=== PATIENT | female | born 1950 ===

== ENCOUNTER 2017-02-19 14:37 | Inpatient (IN) | payer MEDICARE, MEDICAID ==
[2017-02-19] MEDS ORDERED: DOPamine 200 MG/250 ML IVPREM* 200 MG/250 ML ML IV SCH (19:45)
[2017-02-19] MEDS ORDERED: Norepinephrine 16MCG/ML IVPRE* 4,000 MCG/250 ML BAG IV ONE (20:01)
[2017-02-19] MEDS ORDERED: DOPamine 200 MG/250 ML IVPREM* 200 MG/250 ML ML IV ONE (20:01)
[2017-02-19] MEDS: Norepinephrine 16MCG/ML IVPRE* 4,000 MCG/250 ML BAG IV SCH ×2 (20:17→23:19)
[2017-02-19 20:24] LABS: Hematocrit 58 % (35-47); Hemoglobin 17.3 g/dl (12.0-16.0); Mean Corpuscular HGB Conc 30 g/dl (31-36); Mean Corpuscular Hemoglobin 30 pg (27-31); Mean Corpuscular Volume 101 fL (80-97); Mean Platelet Volume 11 um3 (7.4-10.4); Red Blood Count 5.73 10^6/ul (4.0-5.4); Red Cell Distribution Width 17 % (10.5-15); White Blood Count 9.9 10^3/ul (3.5-10.8)
[2017-02-19 20:26] LABS: Comments Flag Yes
[2017-02-19 20:31] LABS: BUN/Creatinine Ratio 37.3 (8-20); EGFR African American 44.4 (>60); EGFR Non-African American 34.5 (>60)
[2017-02-19 20:33] LABS: Potassium 2.6 mmol/L (3.5-5.0)
[2017-02-19] MEDS ORDERED: Phenylephrine INJ* 10 MG/ML 1 ML VIAL (10 MG) ONE (20:48)
[2017-02-19] MEDS: Phenylephrine INJ* 50 MG in NS 0.9% 250 ML* 245 ML IV SCH (20:53)
[2017-02-19] MEDS: KCL 20 MEQ/100 ML IVPREMIX* 20 MEQ/100 ML BAG IV SCH ×2 (21:14→23:31)
[2017-02-20] MEDS: Phenylephrine INJ* 50 MG in NS 0.9% 250 ML* 245 ML IV SCH ×3 (00:50→08:38)
[2017-02-20] MEDS: Norepinephrine 16MCG/ML IVPRE* 4,000 MCG/250 ML BAG IV SCH ×4 (00:52→08:38)
[2017-02-20] MEDS: KCL 20 MEQ/100 ML IVPREMIX* 20 MEQ/100 ML BAG IV SCH (02:00)
[2017-02-20] MEDS ORDERED: EPINEPHrine SYR 0.1 MG/ML* (1:10,000) SYRINGE ONE (03:23)
[2017-02-20] MEDS ORDERED: LR IV ONE (03:30)
[2017-02-20] MEDS: Chlorhexidine MOUTHWASH 0.12%* 15 ML UDC TOPICAL SCH ×6 (03:42→20:59)
--- NOTE | 2017-02-20 04:37 | HP ---
HISTORY AND PHYSICAL: DATE OF ADMISSION: 02/19/17 REASON FOR ADMISSION: Cardiac arrest. 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 There is no prior history of cardiac disease. PAST MEDICAL HISTORY: Includes cholelithiasis, severe kyphoscoliosis (status post Funk tamara placement), breast CA - status post right mastectomy in 2014 , chronic gastritis with gastroesophageal reflux, and Rett syndrome. No other history available at this time. OUTPATIENT MEDICATIONS: 1. Omeprazole 40 mg daily. 2. MiraLAX 34 g daily. 3. Colace 100 mg b.i.d. 4. Claritin 10 mg daily. DRUG ALLERGIES: LEVOFLOXACIN, reaction unknown. REVIEW OF SYSTEMS: Unobtainable. SOCIAL HISTORY: Patient has been a resident of [facility] for the past 20 years. She is nonverbal, and requires full care (including feeding) PHYSICAL EXAMINATION GENERAL: The patient is unresponsive to verbal commands or deep pain. VITAL SIGNS: Temp is 90.3 degrees, blood pressure 71/57 (on vasopressors), heart rate 108, O2 sat 92% with an FiO2 of 60% on mechanical ventilation. Respiratory rate = 16 bpm, and there are no spontaneous breaths. HEENT: Pupils are dilated and nonreactive. Corneal reflexes are absent. NECK: Without masses or jugular venous distention. LUNGS: Occasional rhonchi. CARDIAC: Regular rhythm. No murmurs appreciated. ABDOMEN: Soft. EXTREMITIES: Cool and mottled. NEUROLOGIC: Cranial nerves as mentioned, the patient had no spontaneous movements on admission. DIAGNOSTIC STUDIES/LAB DATA: Only labs available are a serum sodium of 168 mEq /L and a serum lactate of 9 mmol/L. Portable chest x-ray pending. EKG shows small voltage throughout and no acute ST or T-wave changes. IMPRESSION: Anoxic brain injury following cardiac arrest with post-arrest circulatory shock. Patient is also likely to be dehydrated (because of the hypernatremia), although she has received about 3 liters of fluid today (which should be enough to correct dehydration, given the patients weight of 30 kg). There is currently has no evidence of brain activity. MANAGEMENT PLAN: 1) Titrate vasopressor doses to maintain a mean blood pressure of 65 mmHg if possible and maintain arterial O2 sats greater than or equal to 90 %. 2) Continue hydration with IV fluids. 3) Will do a brain determination if there continues to be no spontaneous breathing efforts. CRITICAL CARE TIME: 60 minutes. [id number] #: [id number] MTDD
--- NOTE | 2017-02-20 05:54 | PRO ---
PROCEDURE NOTE: DATE OF PROCEDURE: 02/19/17 PROCEDURE: Insertion of a central venous catheter. DESCRIPTION OF PROCEDURE: The patient is a 67-year-old developmentally disabled female, who was transferred here from [facility] following a 25- minute cardiac arrest. The patient did not awaken and arrived here on two pressors, dopamine and Levophed. Only access was intraosseous and to provide access for pressors, fluids, and other medications, a central venous line was inserted. The right femoral vein was identified under ultrasound guidance and a 7.5-Icelandic triple-lumen catheter was inserted under ultrasound guidance. There were no apparent complications from this procedure. [id number]/[facility] #: [id number] [facility]
[2017-02-20 06:38] LABS: BUN/Creatinine Ratio 38.9 (8-20); Calcium 8.9 mg/dL (8.6-10.3); EGFR African American 54.3 (>60); EGFR Non-African American 42.2 (>60); Potassium 4.5 mmol/L (3.5-5.0)
--- NOTE | 2017-02-20 08:05 | RAD ---
INDICATION: Acute respiratory failure COMPARISON: None. TECHNIQUE: Single AP portable view of the chest was obtained. FINDINGS: Image quality is compromised due to the relative inferiority of a portable chest x-ray as well as inadequate positioning of the patient. Postoperative findings include Funk spinal tamara fixation. The tip of the endotracheal tube is below the level of the clavicular heads but otherwise obscured in relationship to the jo ann. The gastric tube tip terminates at the midline lower mediastinum but the tip is not seen below the level of the diaphragm. There is cardiomegaly and decreased lung volumes. The lung bases are scattered bilaterally. IMPRESSION: 1. Extremely limited chest x-ray due to positioning. 2. The gastric tube tip is seen at the level of the midline mediastinum. Please correlate to auscultation and/or tube drainage. 3. Likely cardiogenic pulmonary edema with bilateral pleural effusions.
[2017-02-20] MEDS ORDERED: Dextrose 50% Syringe 50 ML* 25 GM/50 ML SYRINGE ONE (08:17)
[2017-02-20] MEDS ORDERED: Phenylephrine INJ* 10 MG/ML 1 ML VIAL (10 MG) ONE (08:18)
[2017-02-20] MEDS ORDERED: Famotidine IV* 10 MG/ML 2 ML (20 mg) ONE (08:19)
[2017-02-20 11:18] LABS: FIO2 60; Resp Rate 12; Ventilator Volume 300
[2017-02-20 11:22] LABS: PCO2 Arterial 71 mmHg (35-45)
[2017-02-20] MEDS ORDERED: Iodixanol* (CONTRAST) 320 MG/ML 100 ML SDV IV ONE (12:01)
[2017-02-20] MEDS ORDERED: D5W IV SCH ×2 (12:54→14:03)
[2017-02-20] MEDS ORDERED: PHENYLEPHRINE IV SCH ×2 (12:54→14:03)
[2017-02-20] MEDS: D5W IVPB SCH ×3 (13:37→20:33)
[2017-02-20] MEDS: NOREPINEPHRINE IVPB SCH ×3 (13:37→20:33)
--- NOTE | 2017-02-20 13:50 | RAD ---
HISTORY: Brain termination COMPARISONS: None TECHNIQUE: Multiple contiguous axial CT scans were obtained of the head After the administration of nonionic intravenous contrast timed to the systemic arterial phase of contrast enhancement. Coronal and sagittal multiplanar reformations are submitted for review. Multiple 3-D maximum intensity projection reconstructions are also submitted for review. FINDINGS: Evaluation is limited by technique and patient positioning, and phase of contrast enhancement. RIGHT VERTEBRAL ARTERY: The distal right vertebral artery is unremarkable, without stenosis. LEFT VERTEBRAL ARTERY: The distal left vertebral artery is unremarkable, without stenosis. DOMINANCE: The vertebral arteries are codominant. DISTAL RIGHT CERVICAL INTERNAL CAROTID ARTERY: The distal right cervical internal carotid artery is unremarkable. DISTAL LEFT CERVICAL INTERNAL CAROTID ARTERY: The distal left cervical internal carotid artery is unremarkable. INTRACRANIAL CIRCULATION: There is no aneurysm, vascular malformation, occlusion, or stenosis of the visualized intracranial circulation. Specifically, flow is noted within the cortical branches of the middle cerebral arteries bilaterally The anterior communicating artery complex is clear. Bilateral posterior communicating arteries are identified. VENOUS CIRCULATION: The venous system is unremarkable. Specifically, flow is noted within the internal cerebral veins bilaterally PERFUSION: There is no obvious parenchymal perfusion deficit. HEMORRHAGE/INFARCT: There is no hemorrhage or acute infarct. MASSES/SHIFT: There is no mass or shift. EXTRA-AXIAL SPACES: There are no extra-axial fluid collections. SULCI AND VENTRICLES: There is diffuse sulcal effacement. CEREBRUM: There is a positive reversal sign, the density of the cerebellum is greater than the cerebral hemispheres. BRAINSTEM: There are no focal parenchymal abnormalities. CEREBELLUM: There is a positive reversal sign, the density of the cerebellum is greater than the cerebral hemispheres. PARANASAL SINUSES: The paranasal sinuses are clear. ORBITS: The orbits are unremarkable. BONES AND SOFT TISSUE: No bone or soft tissue abnormalities are noted. OTHER: There is no abnormal enhancement. IMPRESSION: 1. CONTRAST ENHANCEMENT IS NOTED WITHIN THE CORTICAL BRANCHES OF THE MIDDLE CEREBRAL ARTERIES BILATERALLY AND WITHIN THE INTERNAL CEREBRAL VEINS. 2. FINDINGS SUGGESTIVE OF DIFFUSE CEREBRAL EDEMA. 3. PRELIMINARY FINDINGS WERE DISCUSSED WITH DR. GORDON ON THE AFTERNOON OF FEBRUARY 20, 2017
--- NOTE | 2017-02-20 13:55 | PN ---
Critical Care Services: Patient presently on max dose vasopressors (norepinephrine and neosynephrine) and systolic BP only 70 mm Hg. Patient continues to be comatose. We did not start targeted temperature management post-arrest because the patient was already hypothermic (body temp 31 degrees Celsius) and has required warming to increase body temp. Vital Signs: Temp Pulse Resp BP SpO2 FiO2 94.5 F 100 12 91/51 90 60 NOTE: PATIENT HAS NO SPONTANEOUS RESPIRATIONS DESPITE PaCO2 OF 71 mmHg Physical Exam: Gen:Patient is unresponsive and is receiving no sedative drugs HEENT: Pupils fixed and dilated. Corneals absent bilaterally. Oculovestibular reflexes absent bilaterally. Lungs: rhonchi in both lungs. No wheezes or crackles Abdomen: Not distended. Extremities: Cool and mottled. Femoral pulses 2+ despite hypotension. Neuro: No spontaneous movements. No response to deep pain. Fluid Balance (Past 24 Hours): 02/20/17 06:59 Intake Total 5024 Output Total 311 Balance +4713 Weight 76 lb Intake: IV Fluids 2309 LR 2309 IVPB 324 K+ 324 Medicated IV 2391 CC - Dopamine 306 CC - Norepinephrine/ 1517 Levophed CC - Phenylephrine/ 568 Neosynephrine Output: Rush 311 Labs: 02/19/17 02/20/17 02/20/17 20:07 06:15 06:15 Sodium 166 Potassium 4.5 D Chloride 137 H Carbon Dioxide 22 Anion Gap 7 BUN 49 Creatinine 1.26 Glucose 68 POC Glucose (mg/dL) Lactic Acid 9.2 H* 6.8 H* Calcium 8.9 02/20/17 02/20/17 02/20/17 07:47 09:49 11:05 ABG pH 7.02 ABG pCO2 71 ABG pO2 62 L ABG HCO3 13.7 L ABG O2 Saturation 94.6 L ABG Base Excess -14.1 L Respiration Rate 12 Ventilator Type 300 Vent Mode cmv FiO2 60 POC Glucose (mg/dL) 56 L 125 H Studies: CTA OF HEAD - NONCONFIRMATORY FOR BRAIN Nutrition: NPO (because of high pressor requirement) Impression: Patient has no evidence of brainstem activity, but we are unable to diagnose brain because of the body temperature and blood pressure (both too low), and because the head CTA is not confirmatory of brain . However, the prognosis here is dismal because of the refractory hypotension and the persistently elevated lactate level. The 4 liters positive fluid balance should be more than enough to correct dehydration in a patient this size (30 kg) Plan: 1. Neuro consult (Dr. Mooney) 2. Maintain vasopressors and IV fluids 3. Attempt to get a DNR order (patient is a natarajan of the [facility]). Critical Care Time: 45 minutes (including time spent doing a brain determination)
[2017-02-20] MEDS: D5W IV SCH (18:26)
[2017-02-20] MEDS: PHENYLEPHRINE IV SCH (18:26)
--- NOTE | 2017-02-20 21:17 | CONS ---
NEUROLOGY CONSULTATION: DATE OF CONSULT: 02/20/17 LOCATION: She is in ICU, bed 1. REFERRING PHYSICIAN: Dr. Fadi Kaplan. CHIEF COMPLAINT: Recovery from cardiac arrest, assess level of neurological functioning. HISTORY OF PRESENT ILLNESS: Renata Burnett is a 67-year-old severely disabled woman, who is in a snf in [facility]. One of the healthcare workers , who has known her for several years is present at the bedside. She presented to [facility] yesterday in cardiac arrest. According to admission records, required about 25 minutes of resuscitation for return of circulation. She required vasopressor support and was transferred to our intensive care unit. Upon arrival here, she had a temperature of 90.3 degrees, blood pressure 71/57 on 2 vasopressors, heart rate of 108, and oxygen saturation of 92%, intubated on a 60% FiO2. Her pupils were dilated and unreactive and there were no spontaneous movements. She had a serum sodium of 168. She has not improved clinically, but has been a struggle to maintain her blood pressure on 2 pressors as well as to try to get her temperature up in spite of warming attempts. Her most recent temperature by Rush probe was 94.5 degrees Fahrenheit, her blood pressure typically is running about 80 systolic/40-50 diastolic. CBC from last night notable for a hemoglobin of 17.3 with hematocrit of 58% and platelet count of 99,000. Chemistries this morning are notable for sodium at 166 down minimally from admission at 168, chloride markedly elevated at 137, BUN 49, and creatinine 1.26. Glucose earlier this morning 68 and calcium 8.9. A blood gas from 11 this morning notable for pH 7.02 , PCO2 71, PO2 62. I spoke with Dr. Kaplan, who did an apnea test for several minutes and there were no spontaneous breaths. A pre- and post-blood gas was not obtained, just the pre- blood gas listed above. He did calorics and there were no eye movements and her pupils have remained unreactive since presentation. PAST MEDICAL HISTORY: Notable for diagnosis of Rett syndrome and gastroesophageal reflux. According to her aide, who has known her for years, she is nonverbal, is not able to eat independently, but sometimes can reach her face with the back of her hand, needs to be fed, but can swallow. There is no history of epilepsy. CURRENT MEDICATIONS: Consist of: 1. Phenylephrine. 2. Norepinephrine. 3. Famotidine. PHYSICAL EXAM: At time of examination, temperature is 34.7 Celsius, blood pressure is 75/54, heart rate about 100 and sinus. There are no spontaneous respirations, but I did not disconnect her from the ventilator. There are no spontaneous movements. Pupils are fixed and dilated at about 7 mm. There are no eye movements spontaneously or to vestibular ocular testing. There are no corneal reflexes or response to nasal tickle. There are no facial movements spontaneously or to supraorbital or nail-bed pressure. There are no movements of the limbs. The only movement I am able to elicit with the nail-bed pressure and the right forefinger is slight extension of the right thumb. There is no response to nail-bed pressure in any other of her limbs and there are no reflexes elicited. IMPRESSION AND PLAN: Impression is that of probable severe anoxic brain injury. With her hypothermia and hypotension, we cannot make a clinical diagnosis of brain . Additional studies include a CT angiogram of the brain done at 11:48 this morning. I reviewed and there are multiple perfused vessels and also diffuse decreased signal throughout the brain consistent with edema. Our ancillary studies does not show evidence of complete lack of brain perfusion and so we were able not able to make a clinical diagnosis of brain at this point in time. Clearly, her prognosis is dismal and she suffered devastating brain injury in addition to her premorbid developmental disabilities. I will discuss my impression with Dr. Kaplan further. [id number]/[facility] #: [id number] [facility]
[2017-02-21] MEDS: NOREPINEPHRINE IVPB SCH ×5 (00:08→14:01)
[2017-02-21] MEDS: D5W IVPB SCH ×5 (00:08→14:01)
[2017-02-21] MEDS: Chlorhexidine MOUTHWASH 0.12%* 15 ML UDC TOPICAL SCH ×5 (00:25→17:34)
[2017-02-21] MEDS: PHENYLEPHRINE IV SCH ×2 (02:40→11:24)
[2017-02-21] MEDS: D5W IV SCH ×2 (02:40→11:24)
[2017-02-21] MEDS: NS 0.9% 1000 ML* 2,000 ML IV ONE ×2 (10:20→11:41)
[2017-02-21] MEDS: Hydrocortisone INJ* 100 MG VIAL IV SCH ×2 (10:38→19:26)
[2017-02-21] MEDS ORDERED: Levothyroxine INJ* 100 MCG in D5W 250 ML BAG* 250 ML IV SCH (11:00)
--- NOTE | 2017-02-21 12:22 | PN ---
Progress Note - Progress Note Date of Service: 02/21/17 Note: CRITICAL CARE MEDICINE Date: 02/21/17 Time: 1100 SUBJECTIVE: Patient seen and examined. PHYSICAL EXAM: frail. Vital Signs: Reviewed. Neurologic: coma. gcs 3T. pupils fixed and dilated. no corneals, nor gag/cough. seemed to have intermittent breathing but may be trigger related. No response to pain. HEENT: pupils fixed. Sclera anicteric. Trachea midline. Cardiovascular: S1 S2 soft. Respiratory: coarse and dec b/l; ett advanced with upper airway leak dissipated. Abdomen: Soft. Extremities: Cold. mottled. Access: R fem cvc LABS: Reviewed. IMAGING: Reviewed. MEDICATIONS: Reviewed. ASSESSMENT: 67 F OHCA - pea Coma Severe anoxic brain injury Acute hypoxic and hypercarbic resp failure Cardiogenic shock Lactic acidosis on admission Malnutrition - mod degree PLAN: Neurologic: only may have resp trigger (perhaps) but with malperfusion ongoing at risk for only continued decline as continues to remain difficult to resuscitate. Cardiovascular: Already above max dose pressors with levophed and homero. No additive benefit of higher, additional agents nor further inotropic at this point. Will challenge R heart and intravasc volume with fluid bolus. Respiratory: Vent adjusted to see if we can maintain and maximize o2 delivery and ventilation as we are, but remains in a failing effort. Gastrointestinal: ogt to lis. no feeds given pressor requirements. H2 for sup. f /u lfts to eval shock Renal/Metabolic: making urine but this may be more cold diuresis rather then adequate perfusion. as above and f/u Infectious Disease: no abx Hematology: hemoconc on admission. hsq Endocrine: glu rebounding. empric steroids and dose of T4. f/u for potential di and re-eval na. Musculoskeletal: bedrest with turns currently; at risk for breakdown Psych/Social: social work f/u Supportive and preventative care as ordered. SUP: H2 VTE prophylaxis: heparin Rush catheter given critical illness, monitoring needs for accurate assessment of RUBY and KDIGO criteria for critically ill patients and to avoid potential harms of urinary retention, skin breakdown/ulcers. Disposition: ICU Code Status: Full presently, however prognosis is dismal and although she may make it through the day she cannot maintain like this indefinitely and any further escalations in care are not only futile but may be more detrimental. Petition for withdrawal of care submitted. I concur with this. We continue to support presently. Critical Care Time: 50min Axel Baker,
[2017-02-21 13:14] LABS: Hematocrit 45 % (35-47); Mean Corpuscular HGB Conc 29 g/dl (31-36); Mean Corpuscular Hemoglobin 30 pg (27-31); Mean Corpuscular Volume 102 fL (80-97); Mean Platelet Volume 10 um3 (7.4-10.4); Red Blood Count 4.42 10^6/ul (4.0-5.4); Red Cell Distribution Width 16 % (10.5-15); White Blood Count 6.6 10^3/ul (3.5-10.8)
[2017-02-21 13:17] LABS: Comments Flag Yes
[2017-02-21 13:22] LABS: ALT 108 U/L (7-52); AST 106 U/L (13-39); Alkaline Phosphatase 95 U/L (34-104); Anion Gap 5 mmol/L (2-11); BUN/Creatinine Ratio 35.5 (8-20); Blood Urea Nitrogen 43 mg/dL (6-24); CO2 Carbon Dioxide 15 mmol/L (22-32); Calcium 7.4 mg/dL (8.6-10.3); Chloride 108 mmol/L (101-111); EGFR African American 56.9 (>60); EGFR Non-African American 44.2 (>60); Glucose 311 mg/dL (70-100); Magnesium 1.5 mg/dL (1.9-2.7); Phosphorus 3.9 mg/dL (2.5-5.0); Potassium 4.5 mmol/L (3.5-5.0); Sodium 128 mmol/L (133-145); Total Protein < 3.0 g/dL (6.4-8.9)
[2017-02-21 13:25] LABS: Troponin I 0.34 ng/mL (<0.04)
[2017-02-21] MEDS ORDERED: Atropine SYRINGE* 0.1 MG/ML 10 ML SYRINGE (1 MG) IV PUSH ONE (14:30)
[2017-02-21] MEDS ORDERED: Phytonadione Oral Solution* 5 MG/25 ML UDC G TUBE ONE (14:47)
--- NOTE | 2017-02-21 14:56 | PN ---
Progress Note - Progress Note Date of Service: 02/21/17 Note: CRITICAL CARE MEDICINE Date: 02/21/17 Time: 1400 Follow up of pt with continued refractory shock and global hypoperfusion severe anoxic brain injury and no signs of improvement post fluid challenge, steroids, IV T4, margot fioreer and ongoing care. Given 1mg atropine IV with perhaps mild HR increase but less than 10% change and no other changes. May still have minimal vagal response but fleeting. DIC more evident on labs now, acidosis unable to correct despite vent adjustments to maximum. Vasopressors remain maxed. Not expected to survive. Paperwork sent via social work with petition for with holding cpr and appropriate withdrawal of care. She does not have pain but only prolonging the natural dying process. Support as is with further follow up pending. Critical Care Time: 20min additional Axel Baker, DO
[2017-02-21] MEDS ORDERED: Magnesium Sulfate 2 GM IV* 2 GM/50 ML BAG IVPB ONE (15:00)
[2017-02-21] MEDS ORDERED: Norepinephrine VIAL* 1 MG/ML 4 ML VIAL ONE (17:47)
[2017-02-21 18:34] VITALS: BP 25/18
[2017-02-21 18:47] LABS: Albumin 1.1 g/dL (3.2-5.2); Globulin 1.9 g/dL (2-4)
--- NOTE | 2017-02-21 19:22 | DS ---
CRITICAL CARE MEDICINE DISCHARGE SUMMARY ADMISSION DATE: 02/19/2017 ICU ADMISSION DATE: 02/19/2017 ICU DISCHARGE DATE: 02/21/2017 REFERRING PHYSICIAN: [facility]. DIAGNOSIS: 1. Out of hospital cardiac arrest. 2. Coma, with Glascow coma scale 3 on admission. 3. Severe anoxic brain injury. 4. Acute hypoxic and hypercarbic respiratory failure. 5. Refractory cardiogenic shock. 6. Lactic acidosis on admission. 7. Malnutrition - mod degree. 8. Disseminated intravacular coagulopathy. 9. Ischemic hepatitis. 10. Relative adrenal insufficiency. 11. History of Rett's syndrome. MEDICATIONS AT DISCHARGE: None. ALLERGIES: Levofloxacin. HOSPITAL COURSE: 67 year old female transferred from [facility] residence after out of hospital cardiac arrest. Pulseless on site with advance cardiac life support measures taken with about 25 minute resuscitation with return of circulation at [facility] and transfer to [facility]. Ongoing resuscitation efforts continued but patient with severe anoxic brain injury and concern for brain with ongoing refractory cardiogenic shock non-responsive to aggressive therapies and subsequent multisystem organ failure. Prognosis was grim on presentation and petition put in for withdrawal of care with advocacy group and state. Patient continued to be supported but at maximum levels and despite these measures she passed with cardiovascular collapse on 02/21/2017. DISPOSITION: . Axel Baker DO
--- NOTE | 2017-02-21 19:41 | PN ---
Hospitalist Progress Note Resuscitation Note - Covering Attending I was called to the bedside whilst in the ICU rounding on a nearby patient. Ms. Burnett was pulseless. She was being mechanically ventilated, with no underlying respiratory efforts noted. Multiple pressors infusing... Very severe illness noted - severe cardiogenic shock; s/p OHCA and anoxic brain injury. Ongoing efforts to formally declare patient DNR are understood to be underway. But current code status was noted, technically, to be Full Code. CPR was thus initiated at 6:35 PM; and shortly after CPR was started I noticed severe mottling of patient's facial area and rigor mortis around her jaw and in her upper extremities. Noting this as an indication of profoundly diminished circulation and unsurvivable injury, I ceased the resuscitation as any further resuscitation would be medically futile. I declared her time of was 6:[address] Baker was informed and will complete the formal discharge summary.
[2017-02-22] MEDS ORDERED: Famotidine SUSP* 40 MG/5 ML ORAL.SUSP G TUBE ONE (09:00)
== END 2017-02-21 18:37 | disposition expired | DRG 208 ==
LOC: ICU 16:50
PROVIDERS: ADMIT Internal Medicine Critical Care Medicine; ATTEND Internal Medicine Critical Care Medicine
PROC: 5A1945Z Respiratory Ventilation, 24-96 Consecutive Hours (ICD-10-PCS; principal; 2017-02-19)
PROC: 06HM33Z Insertion of Infusion Device into Right Femoral Vein, Percutaneous Approach (ICD-10-PCS; 2017-02-19)
PROC: B54BZZA Ultrasonography of Right Lower Extremity Veins, Guidance (ICD-10-PCS; 2017-02-19)
DX: J96.01 Acute respiratory failure with hypoxia (principal); R57.0 Cardiogenic shock; G93.6 Cerebral edema; G93.1 Anoxic brain damage, not elsewhere classified; E87.0 Hyperosmolality and hypernatremia; I95.9 Hypotension, unspecified; T68.XXXA Hypothermia, initial encounter; E27.49 Other adrenocortical insufficiency; E44.0 Moderate protein-calorie malnutrition; E87.2 Acidosis; F84.2 Rett's syndrome; J96.02 Acute respiratory failure with hypercapnia; K72.90 Hepatic failure, unspecified without coma; E86.0 Dehydration; F79 Unspecified intellectual disabilities; Z68.23 Body mass index [BMI] 23.0-23.9, adult; Z85.3 Personal history of malignant neoplasm of breast; Z79.899 Other long term (current) drug therapy; Z88.1 Allergy status to other antibiotic agents; X58.XXXA Exposure to other specified factors, initial encounter
CPT/HCPCS: 36415; 36600; 70496; 71010; 80048; 80053; 82803; 83605; 83735; 84100; 84484; 85027; 85610; 87641; 93005; 94002; 94003; 94760; A9270-GY; J0171; J0461; J1265; J1720; J3475; J3480; Q9967